=== PATIENT | female | born 1980 | race African-American/Black ===

== ENCOUNTER 2021-02-25 00:07 | Emergency (ER) | payer MEDICAID ==
[~2021-02-25] VITALS: Ht 165.1 cm; Wt 77.1 kg
[2021-02-25] MEDS ORDERED: KETOROLAC 30MG/ML VIAL IM ONE (01:15)
[2021-02-25 02:15] VITALS: BP 117/64
[2021-02-25] MEDS ORDERED: NAPR-420 MT (02:51)
== END 2021-02-25 03:00 | disposition home or self-care (01) ==
LOC: ER 00:07
DX: S50.11XA Contusion of right forearm, initial encounter (principal); S93.401A Sprain of unspecified ligament of right ankle, initial encounter; E11.9 Type 2 diabetes mellitus without complications; V43.52XA Car driver injured in collision with other type car in traffic accident, initial encounter; Y93.89 Activity, other specified; Y92.488 Other paved roadways as the place of occurrence of the external cause
CPT/HCPCS: 71101; 73090; 73610; 96372; 99284; J1885

== ENCOUNTER 2024-06-12 16:04 | Emergency (ER) | payer MEDICAID ==
[~2024-06-12] VITALS: Ht 170.2 cm; Wt 91.0 kg
[~2024-06-12 16:04] MED LIST: NAPR-420 MT
[2024-06-12 16:13] VITALS: BP 139/86; PULSE 90; RESP 18; TEMP 98.5; O2SAT 100
[2024-06-12 16:52] LABS: CHLORIDE 106 mEq/L (98-107); SODIUM 140 mEq/L (136-145)
[2024-06-12 16:53] LABS: CARBON DIOXIDE 29 mEq/L (21-32)
[2024-06-12 16:54] LABS: CALCIUM 9.5 mg/dL (8.7-10.4)
[2024-06-12 16:58] LABS: CREATININE 0.7 mg/dL (0.6-1.0); GLUCOSE 117 mg/dL (70-105)
[2024-06-12 16:59] LABS: UREA NITROGEN BLOOD 9 mg/dL (9-23)
[2024-06-12 17:00] LABS: ALANINE AMINOTRANSFERASE 15 IU/L (10-49); ASPARTATE AMINOTRANSFERASE 15 IU/L (<34)
[2024-06-12 17:01] LABS: ALBUMIN 4.6 g/dL (3.2-4.8); BILIRUBIN TOTAL 0.8 mg/dL (0.1-1.0); PROTEIN TOTAL 8.2 g/dL (6.0-8.3); TROPONIN I HIGH SENSITIVITY 4 ng/L (3.0-34)
[2024-06-12 17:03] LABS: BASOPHILS % 0.7 % (0.0-2.0); EOSINOPHILS % 3.3 % (0.0-5.0); HEMATOCRIT. 40.1 % (36.0-48.0); LYMPHOCYTES % 40.4 % (20.0-50.0); MEAN CORPUSCULAR HGB CONC 32.5 g/dL (31.0-37.0); MEAN CORPUSCULAR VOLUME 83.1 fL (81.0-99.0); MEAN PLATELET VOLUME 9.7 fl (7.4-10.4); MONOCYTES % 7.5 % (2.0-8.0); NEUTROPHILS % 48.1 % (40.0-76.0); PLATELET 290 x1000/uL (130-400); RED BLOOD CELL COUNT 4.82 mill/uL (4.2-5.4); RED CELL DISTRIBUTION WIDTH 13.7 % (11.6-14.6); WHITE BLOOD COUNT 6.1 x1000/uL (4.5-11.0)
[2024-06-12] MEDS ORDERED: KETOROLAC 15MG/ML VIAL IM ONE (18:45)
[2024-06-12] MEDS ORDERED: IBUP-2029 MT (18:46)
== END 2024-06-12 19:08 | disposition home or self-care (01) ==
LOC: ER 16:04
DX: M79.661 Pain in right lower leg (principal); R07.89 Other chest pain; I25.2 Old myocardial infarction; I10 Essential (primary) hypertension; E11.9 Type 2 diabetes mellitus without complications; Z98.890 Other specified postprocedural states
CPT/HCPCS: 36415; 71045; 80053; 84484; 85025; 93005; 93971; 99285